=== PATIENT | male | born 1995 | race Caucasian/White ===

== ENCOUNTER 2024-04-18 06:00 | Outpatient (CLI) | payer MEDICAID, SELFPAY | END 2024-04-18 06:01 | LOC: RAD 07-13 14:07 | PROVIDERS: Visit Provider Psychiatry & Neurology Neurology | DX: R42 Dizziness and giddiness (principal) | CPT/HCPCS: 36415; 80053; 82306; 82607; 82746; 83090; 83735; 83921; 84439; 84443; 84481; 85025 ==